=== PATIENT | female | born 1970 | race Caucasian/White ===

== ENCOUNTER 2018-02-16 23:30 | Emergency (ER) | payer BC ==
[2018-02-17 00:59] LABS: ABS Basophils 0 10^3/ul (0-0.2); ABS Eosinophils 0.2 10^3/ul (0-0.6); ABS Lymphocytes 3.2 10^3/ul (1.0-4.8); ABS Monocytes 0.7 10^3/ul (0-0.8); ABS Nucleated RBC 0 10^3/ul; Eosinophil % 1.5 % (0-6); Hematocrit 40 % (35-47); Hemoglobin 13.7 g/dl (12.0-16.0); Lymphocyte % 24.2 % (25-47); Mean Corpuscular HGB Conc 34 g/dl (31-36); Mean Corpuscular Hemoglobin 31 pg (27-31); Mean Corpuscular Volume 89 fL (80-97); Mean Platelet Volume 8.6 um3 (7.4-10.4); Nucleated Red Blood Cells % 0; Platelet Count 206 10^3/ul (150-450); Red Blood Count 4.49 10^6/ul (4.0-5.4); Red Cell Distribution Width 13 % (10.5-15); White Blood Count 13.2 10^3/ul (3.5-10.8)
[2018-02-17 01:00] LABS: EGFR Non-African American 88.6 (>60)
[2018-02-17 03:56] VITALS: BP 105/66
--- NOTE | 2018-02-17 17:23 | ED ---
Amrit Menendez Stephanie, scribed for Manoj Mejia MD on 02/17/18 at 0049 . Palpitations / Dysrhythmia - HPI Summary HPI Summary: The pt is a 47 y/o F presenting to the ED with c/o palpitations that began at approximately 23:45 today. The pt states she was sitting watching a movie after smoking THC, when her HR increased to approximately 140 BPM (per wrist HR monitor) and she states she felt as though she was having a panic attack. Symptoms include bilateral UE and LE numbness and increased urination. Per boyfriend, the pt was speaking slower than usual. - History of Current Complaint Chief Complaint: EDDysrhythmPalp Time Seen by Provider: 02/17/18 00:22 Hx Obtained From: Patient Onset/Duration: Sudden Onset, Lasting Hours, Resolved Character: Fast Aggravating: Nothing Alleviating: Nothing - Allergy/Home Medications Allergies/Adverse Reactions: Allergies Allergy/AdvReac Type Severity Reaction Status Date / Time eucalyptus Allergy Hives Verified 02/16/18 23:45 phenethylamine Allergy Hallucinati Verified 02/16/18 23:46 ons PMH/Surg Hx/FS Hx/Imm Hx Endocrine/Hematology History: Denies: Hx Diabetes, Hx Thyroid Disease Cardiovascular History: Reports: Hx Hypertension Sensory History: Denies: Hx Legally Blind EENT History: Denies: Hx Deafness - Surgical History Surgery Procedure, Year, and Place: 2 sections. PARTIAL HYSTERECTOMY. Cholecystectomy - Immunization History Date of Influenza Vaccine: fall 2016 Infectious Disease History: No Infectious Disease History: Denies: Traveled Outside the [place] in Last 30 Days - Family History Known Family History: Positive: Cardiac Disease, Other - CVA - Social History Occupation: Unemployed Lives: With Family Alcohol Use: None Substance Use Type: Reports: Marijuana Substance Use Comment - Amount & Last Used: tonight Smoking Status (MU): Heavy Every Day Tobacco Smoker Review of Systems Negative: Fever Positive: Palpitations Positive: other - increased Positive: Decreased ROM - urination Neurological: Other - slower speach All Other Systems Reviewed And Are Negative: Yes Physical Exam - Summary Physical Exam Summary: Appearance: Well-appearing, no distress, Well-nourished Skin: Warm, color reflects adequate perfusion Head: Normal Head/Face inspection Eyes: Conjunctiva clear ENT: Normal inspection Neck: Supple, no nodes, no JVD. Respiratory: Lungs clear, Normal breath sounds, no respiratory distress Cardio: RRR, No murmur, pulses normal, brisk capillary refill Abdomen: soft, nontender, no guarding, no rebound Bowel sounds: present Musculoskeletal: Strength Intact/ ROM intact. No calf tenderness. No edema. Neuro: Alert, muscle tone normal, facial symmetry, speech normal, sensory/motor intact Psychological: Normal Triage Information Reviewed: Yes Vital Signs On Initial Exam: Initial Vitals Temp Pulse Resp BP Pulse Ox 97.6 F 95 16 151/75 99 02/16/18 23:41 02/16/18 23:41 02/16/18 23:41 02/16/18 23:41 02/16/18 23:41 Vital Signs Reviewed: Yes Diagnostics - Vital Signs Vital Signs Temp Pulse Resp BP Pulse Ox 02/17/18 00:05 16 02/16/18 23:41 97.6 F 95 16 151/75 99 - Laboratory Lab Results: Lab Results 02/17/18 02/17/18 02/17/18 Range/Units 00:35 00:35 00:35 WBC 13.2 H (3.5-10.8) 10^3/ul RBC 4.49 (4.0-5.4) 10^6/ul Hgb 13.7 (12.0-16.0) g/dl Hct 40 (35-47) % MCV 89 (80-97) fL MCH 31 (27-31) pg MCHC 34 (31-36) g/dl RDW 13 (10.5-15) % Plt Count 206 (150-450) 10^3/ul MPV 8.6 (7.4-10.4) um3 Neut % (Auto) 68.6 (38-83) % Lymph % (Auto) 24.2 L (25-47) % Kendall % (Auto) 5.5 (0-7) % Eos % (Auto) 1.5 (0-6) % Baso % (Auto) 0.2 (0-2) % Absolute Neuts (auto) 9.0 H (1.5-7.7) 10^3/ul Absolute Lymphs (auto) 3.2 (1.0-4.8) 10^3/ul Absolute Monos (auto) 0.7 (0-0.8) 10^3/ul Absolute Eos (auto) 0.2 (0-0.6) 10^3/ul Absolute Basos (auto) 0 (0-0.2) 10^3/ul Absolute Nucleated RBC 0 10^3/ul Nucleated RBC % 0 Sodium 137 (133-145) mmol/L Potassium 3.7 (3.5-5.0) mmol/L Chloride 103 (101-111) mmol/L Carbon Dioxide 28 (22-32) mmol/L Anion Gap 6 (2-11) mmol/L BUN 11 (6-24) mg/dL Creatinine 0.71 (0.51-0.95) mg/dL Est GFR ( Amer) 114.0 (>60) Est GFR (Non-Af Amer) 88.6 (>60) BUN/Creatinine Ratio 15.5 (8-20) Glucose 127 H (70-100) mg/dL Lactic Acid 1.1 (0.5-2.0) mmol/L Calcium 9.3 (8.6-10.3) mg/dL Magnesium 1.8 L (1.9-2.7) mg/dL Total Bilirubin 0.20 (0.2-1.0) mg/dL AST 19 (13-39) U/L ALT 22 (7-52) U/L Alkaline Phosphatase 73 (34-104) U/L Troponin I 0.00 (<0.04) ng/mL Total Protein 6.5 (6.4-8.9) g/dL Albumin 4.0 (3.2-5.2) g/dL Globulin 2.5 (2-4) g/dL Albumin/Globulin Ratio 1.6 (1-3) TSH 2.38 (0.34-5.60) mcIU/mL Result Diagrams: 02/17/18 00:35 02/17/18 00:35 Lab Statement: Any lab studies that have been ordered have been reviewed, and results considered in the medical decision making process. - EKG 23:45 Cardiac Rate: NL EKG Rhythm: Sinus Rhythm - 89 BPM EKG Interpretation: nml axis, nml interval, no STTwave changes, normal EKG Re-Evaluation - Re-Evaluation First Eval Re-Evaluation Time: 01:58 Change: Improved - Pt HR wnl. Pt symptoms completely resolved Pt symptoms most consistent with anxiety/panic. Course/Dx - Diagnoses Differential Diagnosis/HQI/PQRI: Positive: AV Block, Coronary Artery Disease, Hypokalemia, Hypoxia, Paroxymal SVT, Pericarditis, Pulmonary Embolism, V-Tach Provider Diagnoses: Anxiety Discharge - Sign-Out/Discharge Documenting (check all that apply): Discharge - Discharge Plan Condition: Improved Disposition: HOME Patient Education Materials: Anxiety (ED) Referrals: Aida Hendrickson MD [Primary Care Provider] - - Billing Disposition and Condition Condition: IMPROVED Disposition: HOME The documentation as recorded by the Amrit andrew Stephanie accurately reflects the service I personally performed and the decisions made by Roberto gurein Omari A, MD.
== END 2018-02-17 02:10 | disposition home or self-care (01) ==
LOC: ED 23:30
DX: F41.9 Anxiety disorder, unspecified (principal); R00.2 Palpitations; Z86.79 Personal history of other diseases of the circulatory system; F17.210 Nicotine dependence, cigarettes, uncomplicated
CPT/HCPCS: 36415; 80053; 80307; 83605; 83735; 84443; 84484; 85025; 93005; 99283

== ENCOUNTER → 2019-02-06 16:58 | Emergency (ER) | payer BC ==
[2019-02-06 19:17] VITALS: BP 142/110
--- NOTE | 2019-02-06 19:33 | ED ---
Back Pain - HPI Summary HPI Summary: The patient is a 48 y/o F presenting to [facility] with a chief complaint of sudden onset low left back pain that radiates into and down the left thigh starting four days ago. She states that she had a "hard cough" immediately prior to the pain starting. The constant pain is described as a stiffness or tenseness that is parallel to "a frustrating or annoying itch that you can't get rid of." The pain is aggravated by straightening or lifting her left leg, and it is alleviated by standing, but she cannot stand for long because she fractured her left ankle approximately two months ago. She additionally c/o difficulty with gait secondary to pain, minimal incontinence secondary to a productive cough, and numbness in the left leg due to the boot she has been wearing for her fractured ankle (onset today). The pain is currently rated as 8/10 in severity. She has tried to use Ibuprofen, ice packs, heating pads, and medical marijuana to treat the pain, but unfortunately there was no relief. She does take Gabapentin for management of chronic back pain, as prescribed by her chronic pain doctor. Previously, she has tried Cortisone shots in her neck and back, but they didn't seem to manage her pain. She has an appointment with her PCP tomorrow, but she was afraid that she would be sent here anyway. The patient also has hx of HTN, which is not being controlled by medication because she was taking Amlodipine, but it caused her to have severe chest congestion. Current smoker. - History of Current Complaint Chief Complaint: EDBackInjuryPain Stated Complaint: I COUGHED AND INJURED MY LOWER BACK PER PT Time Seen by Provider: 02/06/19 19:26 Hx Obtained From: Patient Onset/Duration: Sudden Onset, Lasting Days - four, Still Present Onset/Duration: Started Days Ago, Still Present Timing: Lasting Days Back Pain Location: Is Discrete @ - low left back, Radiates To - left leg Severity Initially: Severe Severity Currently: Severe Pain Intensity: 8 Pain Scale Used: 0-10 Numeric Character: Stiffness Aggravating Symptom(s): Lifting - left leg, Other - straightening out left leg Alleviating Symptom(s): Other - standing, but she can't stand long due to broken ankle on ipsilateral side as back pain Associated Signs And Symptoms: Positive: Numbness - caused by wearing boot for fractured ankle, Bladder Incontinence - minimal amount due to cough, Pain with Weight Bearing, Other - productive cough - Allergies/Home Medications Allergies/Adverse Reactions: Allergies Allergy/AdvReac Type Severity Reaction Status Date / Time eucalyptus Allergy Hives Verified 02/16/18 23:45 phenethylamine Allergy Hallucinati Verified 02/16/18 23:46 ons PMH/Surg Hx/FS Hx/Imm Hx Endocrine/Hematology History: Denies: Hx Diabetes, Hx Thyroid Disease Cardiovascular History: Reports: Hx Hypertension Musculoskeletal History: Denies: Hx Osteoporosis Sensory History: Denies: Hx Legally Blind, Hx Deafness Opthamlomology History: Denies: Hx Legally Blind Neurological History: Reports: Other Neuro Impairments/Disorders - Fx COCCYX 2016 - Surgical History Surgery Procedure, Year, and Place: 2 sections. PARTIAL HYSTERECTOMY. Cholecystectomy - Immunization History Date of Influenza Vaccine: fall 2016 Infectious Disease History: No Infectious Disease History: Denies: Traveled Outside the [place] in Last 30 Days - Family History Known Family History: Positive: Cardiac Disease, Other - CVA - Social History Alcohol Use: None Hx Substance Use: Yes Substance Use Type: Reports: Marijuana Substance Use Comment - Amount & Last Used: tonight Hx Tobacco Use: Yes Smoking Status (MU): Heavy Every Day Tobacco Smoker Review of Systems Positive: Cough - productive Positive: incontinence - minimal amount due to coughing Positive: Other - low left back pain that radiates down left leg, difficulty with gait due to pain Positive: Numbness - in left leg from wearing boot from fractured left ankle All Other Systems Reviewed And Are Negative: Yes Physical Exam - Summary Physical Exam Summary: Appearance: Well-appearing, Well-nourished, lying in bed comfortably Skin: Warm, dry, no obvious rash Eyes: sclera anicteric, no conjunctival pallor ENT: mucous membranes moist, pharynx appears normal Neck: Supple, nontender Respiratory: Clear to auscultation, no signs of respiratory distress Cardiovascular: Normal S1, S2. No murmurs. Normal distal pulses in tibial and radial bilaterally. Abdomen: Soft, nontender, normal active bowel sounds present Musculoskeletal: Normal, Strength/ROM Intact, no clonus at ankles, reflexes are normal at the knees, no loss of strength in dorsiflexion or plantarflexion of feet Neurological: A&Ox3, awake and alert, mentation is normal, speech is fluent and appropriate Psychiatric: affect is normal, does not appear anxious or depressed Triage Information Reviewed: Yes Vital Signs On Initial Exam: Initial Vitals Temp Pulse Resp BP Pulse Ox 99.3 F 99 17 156/100 100 02/06/19 17:10 02/06/19 17:10 02/06/19 17:10 02/06/19 17:10 02/06/19 17:10 Vital Signs Reviewed: Yes Diagnostics - Vital Signs Vital Signs Temp Pulse Resp BP Pulse Ox 02/06/19 19:12 97.8 F 94 16 142/110 95 02/06/19 17:10 99.3 F 99 17 156/100 100 - Laboratory Lab Statement: Any lab studies that have been ordered have been reviewed, and results considered in the medical decision making process. Back Pain Course/Dx - Course Course Of Treatment: The patient is a 48 y/o F with a chief complaint of sudden onset low left back pain that radiates into and down the left thigh starting four days ago, which she believes started due to a coughing fit she had. The constant pain is a stiffness that is aggravated by straightening or lifting the left leg, and alleviated by standing, although she cant stand for long due to left ankle fracture. She additionally c/o difficulty with gait secondary to pain , minimal incontinence secondary to a productive cough, and numbness in the left leg due to the boot she has been wearing for her broken ankle. Use of Ibuprofen, ice packs, heating pads, and medical marijuana did not relieve the pain. She is prescribed Gabapentin for chronic back pain management. Upon physical exam, the patient exhibits no acute changes; there is no clonus at ankles, reflexes are normal at the knees, and there is no loss of strength in dorsiflexion or plantarflexion of feet. She is diagnosed with sciatica. We discussed discharge with prescription for Valium and Prednisone. The patient agrees with this plan and understands the need for return to the ED for any new or worsening symptoms. - Diagnoses Differential Diagnosis/HQI/PQRI: Positive: Cauda Equina Syndrome, Herniated Disc , Neoplasm, Renal Colic, Strain Provider Diagnoses: Sciatica Discharge - Sign-Out/Discharge Documenting (check all that apply): Patient Departure - Patient will be discharged home. Patient Received Moderate/Deep Sedation with Procedure: No - Discharge Plan Condition: Good Disposition: HOME Prescriptions: Diazepam TAB(*) [Valium TAB(*)] 5 mg PO TID PRN #15 tab MDD 15 mg PRN Reason: Spasms - Back predniSONE [Prednisone 20 MG TAB] 40 mg PO DAILY 5 Days #10 tablet Patient Education Materials: Sciatica (ED) Referrals: Aida Hendrickson MD [Primary Care Provider] - 1 Day Additional Instructions: Follow up with your primary care provider tomorrow at your appointment. Return to the emergency department for any new or worsening symptoms. In addition to the prescribed medications, tylenol at a dose of 1000 mg 3-4 times a day can be very helpful. None of this will completely eliminate the pain but should help temporize until the injury heals. - Billing Disposition and Condition Condition: GOOD Disposition: Home - Attestation Statements Document Initiated by Sebastien: Yes Documenting Scribe: Juli Clark Provider For Whom Sebastien is Documenting (Include Credential): Dr. Savage Okeefe MD Scribe Attestation: Juli Menendez scribed for Dr. Savage Okeefe MD on 02/07/19 at 0440. Scribe Documentation Reviewed: Yes Provider Attestation: The documentation as recorded by the Juli andrew accurately reflects the service I personally performed and the decisions made by me, Dr. Savage Okeefe MD Status of Sebastien Document: Viewed
== END | disposition home or self-care (01) ==
LOC: ED 16:58
DX: M54.32 Sciatica, left side (principal); I10 Essential (primary) hypertension; Z72.0 Tobacco use
CPT/HCPCS: 99282

== ENCOUNTER 2022-03-31 01:01 | Inpatient (IN) ==
[2022-03-31] MEDS ORDERED: Droperidol 5 MG/2 ML 2 ML VIAL IV ONE (01:20)
[2022-03-31 02:16] LABS: Hematocrit 49 % (35-47); Hemoglobin 16.7 g/dL (12.0-16.0); Mean Corpuscular HGB Conc 34 g/dL (31-36); Mean Corpuscular Hemoglobin 29 pg (27-31); Mean Corpuscular Volume 86 fL (80-97); Mean Platelet Volume 8.1 fL (7.4-10.4); Platelet Count 340 10^3/uL (150-450); Red Blood Count 5.69 10^6 /uL (3.70-4.87); Red Cell Distribution Width 13 % (10-15); White Blood Count 20.2 10^3/uL (3.5-10.8)
[2022-03-31 02:33] LABS: ABS Lymphocytes 1.9 10^3/ul (1.0-4.8); ABS Monocytes 1.6 10^3/ul (0-0.8); ABS Neutrophils 16.7 10^3/ul (1.5-7.7); ABS Nucleated RBC 0.1 10^3/ul; Lymphocyte % 9.3 %; Nucleated Red Blood Cells % 0.4
[2022-03-31 02:36] LABS: Urine Appearance Cloudy; Urine Bilirubin Negative (Negative); Urine Blood 3+ (Negative); Urine Color Amber; Urine Glucose Negative (Negative); Urine Ketones Trace (Negative); Urine Nitrite Negative (Negative); Urine Protein 3+(>=500 mg/dL) (Negative); Urine Specific Gravity 1.032 (1.002-1.030); Urine Urobilinogen Positive (Negative)
[2022-03-31 02:37] LABS: ALT 20 U/L (7-52); Acetaminophen < 15 mcg/mL; Albumin 4.8 g/dL (3.2-5.2); Albumin/Globulin Ratio 1.6 (1-3); Alcohol, S < 13 mg/dL (<13); Alkaline Phosphatase 87 U/L (35-149); Blood Urea Nitrogen 22 mg/dL (6-24); CO2 Carbon Dioxide 29 mmol/L (22-32); Chloride 92 mmol/L (101-111); Glucose 135 mg/dL (70-100); High Sens Troponin Baseline 4 pg/mL (<15); Sodium 135 mmol/L (135-145); Total Protein 7.8 g/dL (6.4-8.9); eGFR CKD-EPI 82.3 (>60)
[2022-03-31 02:39] LABS: Anion Gap 14 mmol/L (2-11)
[2022-03-31 02:51] LABS: TSH Ultra Thyroid Stim Horm 0.65 mcIU/mL (0.34-5.60)
[2022-03-31 02:58] LABS: Urine Bacteria 1+ (Absent); Urine Benzodiazepine Screen None Detected (None Detect); Urine Cannabinoids Screen Presumptive Positive (None Detect); Urine Opiates Screen Presumptive Positive (None Detect); Urine Red Blood Cell 3+(>10/hpf) (Absent); Urine Squamous Epithelial Cell Present (Absent); Urine White Blood Cell Trace(0-5/hpf) (Absent)
[2022-03-31 03:51] LABS: Potassium Redraw 3.4 mmol/L (3.5-5.0)
[2022-03-31 03:54] LABS: C Reactive Protein 122.54 mg/L (<8.01)
[2022-03-31 03:57] LABS: Urine Benzodiazepine Screen None Detected (None Detect); Urine Buprenorphine Screen None Detected (None Detect); Urine Cannabinoids Screen Presumptive Positive (None Detect); Urine Fentanyl Screen None Detected (None Detect); Urine Hydrocodone Screen None Detected (None Detect); Urine Opiates Screen Presumptive Positive (None Detect)
[2022-03-31] MEDS ORDERED: Ketamine HCL 50 mg/ml 10 ml VIAL (500 MG) IV ONE (04:09)
[2022-03-31] MEDS ORDERED: cefTRIAXone 2 gm/50 mL D5W 2 GM/50 ML BAG IV ONE (04:15)
[2022-03-31] MEDS ORDERED: Vancomycin 1,250 MG in NS 0.9% 250 ml 250 ML IVPB ONE (04:30)
[2022-03-31] MEDS ORDERED: Propofol 10 MG/ML 20 ML BTL ONE (04:30)
[2022-03-31] MEDS ORDERED: Propofol 10 MG/ML 20 ML BTL IV PUSH ONE (04:32)
[2022-03-31] MEDS ORDERED: Lidocaine 1% VIAL 10 MG/ML VIAL ONE (04:42)
[2022-03-31] MEDS ORDERED: Potassium Chloride LIQUID 20 MEQ/15 ML LIQUID PO ONE (04:57)
[2022-03-31] MEDS ORDERED: Ampicillin ADVAN 2 GM in NS 0.9% 100 ML 100 ML IVPB ONE (05:00)
[2022-03-31] MEDS ORDERED: Vancomycin per Pharmacy 1 EA NOTE FOLLOW UP SCH (05:00)
[2022-03-31 05:01] LABS: Body Fluid Source Cerebral Spinal
[2022-03-31 05:15] LABS: CSF Glucose 59 mg/dL (40-70)
[2022-03-31 05:25] LABS: Hematocrit 46 % (35-47); Hemoglobin 15.9 g/dL (12.0-16.0); Mean Corpuscular HGB Conc 34 g/dL (31-36); Mean Corpuscular Hemoglobin 30 pg (27-31); Mean Corpuscular Volume 87 fL (80-97); Mean Platelet Volume 8.4 fL (7.4-10.4); Platelet Count 331 10^3/uL (150-450); Red Blood Count 5.32 10^6 /uL (3.70-4.87); Red Cell Distribution Width 13 % (10-15); White Blood Count 19.1 10^3/uL (3.5-10.8)
[2022-03-31 05:55] LABS: ABS Lymphocytes 1.9 10^3/ul (1.0-4.8); ABS Monocytes 1.8 10^3/ul (0-0.8); ABS Neutrophils 15.4 10^3/ul (1.5-7.7); Lymphocyte % 10.1 %
[2022-03-31] MEDS ORDERED: Acyclovir IV 520 MG in NS 0.9% 100 ml BAG 100 ML IVPB SCH (06:00)
[2022-03-31 06:16] LABS: Albumin 4.7 g/dL (3.2-5.2); Albumin/Globulin Ratio 1.6 (1-3); Calcium 10.4 mg/dL (8.6-10.3); Globulin 2.9 g/dL (2-4); Potassium 3.6 mmol/L (3.5-5.0); Total Bilirubin 0.7 mg/dL (0.2-1.0); Total Protein 7.6 g/dL (6.4-8.9); eGFR CKD-EPI 66.2 (>60)
[2022-03-31 06:47] LABS: Body Fluid Appearance Clear; Body Fluid Band 1 %; Body Fluid Color Colorless; Body Fluid Mono 30 %; Body Fluid Total Cells Counted 200
[2022-03-31 06:52] LABS: Body Fluid WBC 439.5 /mcL
[2022-03-31 06:56] LABS: CSF Tube # 4
[2022-03-31] MEDS: Mometasone/Formoter 200/5 MDI INH SCH ×2 (08:32→18:57)
[2022-03-31] MEDS ORDERED: Ampicillin ADVAN 2 GM in NS 0.9% 100 ml BAG 100 ML IVPB SCH (09:00)
[2022-03-31] MEDS: NS 0.9% 1000 ml BAG 1,000 ML IV SCH (12:19)
[2022-03-31] MEDS: Ampicillin ADVAN 2 GM in NS 0.9% 100 ml BAG 100 ML IVPB SCH ×4 (12:42→21:38)
[2022-03-31] MEDS: Morphine 2 MG/ML SYRINGE IV PRN ×2 (13:45→17:18)
[2022-03-31] MEDS: Vancomycin 1,250 MG in NS 0.9% 250 ml 250 ML IVPB SCH (15:14)
[2022-03-31] MEDS: DULoxetine DR 30 mg CAP PO SCH ×2 (15:23→22:10)
[2022-03-31] MEDS: cefTRIAXone 2 gm/50 mL D5W 2 GM/50 ML BAG IV SCH (17:19)
[2022-03-31] MEDS ORDERED: LORazepam 2 mg VIAL 1 ml IV PUSH PRN (17:55)
[2022-03-31] MEDS ORDERED: Lorazepam PYXIS KEY PRN (17:55)
[2022-03-31] MEDS: Acyclovir IV 520 MG in NS 0.9% 100 ml BAG 100 ML IVPB SCH (20:12)
[2022-03-31] MEDS ORDERED: Haloperidol 5 mg/ml SDV IV/IM 5 MG/ML AMP IM ONE (21:49)
[2022-03-31] MEDS ORDERED: Haloperidol 5 mg/ml SDV IV/IM 5 MG/ML AMP ONE (21:51)
[2022-03-31] MEDS ORDERED: Morphine 2 MG/ML SYRINGE IV PRN (21:55)
[2022-04-01] MEDS: Ampicillin ADVAN 2 GM in NS 0.9% 100 ml BAG 100 ML IVPB SCH ×6 (00:20→21:21)
[2022-04-01] MEDS ORDERED: Dexmedetomidine 1,000 MCG in NS 0.9% 250 ml 240 ML IV SCH (02:00)
[2022-04-01] MEDS: cefTRIAXone 2 gm/50 mL D5W 2 GM/50 ML BAG IV SCH ×2 (04:36→15:31)
[2022-04-01] MEDS: Vancomycin 1,250 MG in NS 0.9% 250 ml 250 ML IVPB SCH (04:52)
[2022-04-01 05:34] LABS: Hematocrit 41 % (35-47); Hemoglobin 14.1 g/dL (12.0-16.0); Mean Corpuscular HGB Conc 34 g/dL (31-36); Mean Corpuscular Hemoglobin 30 pg (27-31); Mean Corpuscular Volume 87 fL (80-97); Red Blood Count 4.71 10^6 /uL (3.70-4.87); Red Cell Distribution Width 13 % (10-15); White Blood Count 17.8 10^3/uL (3.5-10.8)
[2022-04-01 05:58] LABS: Blood Urea Nitrogen 18 mg/dL (6-24); CO2 Carbon Dioxide 26 mmol/L (22-32); Calcium 9.1 mg/dL (8.6-10.3); Chloride 100 mmol/L (101-111); Glucose 119 mg/dL (70-100); Sodium 137 mmol/L (135-145); eGFR CKD-EPI 97.9 (>60)
[2022-04-01 05:59] LABS: Anion Gap 11 mmol/L (2-11)
[2022-04-01] MEDS: Acyclovir IV 520 MG in NS 0.9% 100 ml BAG 100 ML IVPB SCH ×4 (07:10→22:33)
[2022-04-01 07:14] LABS: ABS Basophils 0.1 10^3/ul (0-0.2); ABS Lymphocytes 3.4 10^3/ul (1.0-4.8); ABS Monocytes 1.3 10^3/ul (0-0.8); ABS Neutrophils 13.1 10^3/ul (1.5-7.7); Eosinophil % 0.1 %; Lymphocyte % 18.9 %; Nucleated Red Blood Cells % 0.1; Platelet Count Platelets clumped. 10^3/uL (150-450)
[2022-04-01] MEDS ORDERED: Potassium Chloride LIQUID 20 MEQ/15 ML LIQUID PO ONE (07:34)
[2022-04-01 07:54] LABS: Magnesium 1.8 mg/dL (1.9-2.7)
[2022-04-01] MEDS: DULoxetine DR 30 mg CAP PO SCH ×2 (08:32→21:31)
[2022-04-01] MEDS: KCL 20 MEQ/100 ML IVPREMIX 20 MEQ/100 ML BAG IV SCH ×2 (11:39→13:53)
[2022-04-01] MEDS: Enoxaparin 40 MG/0.4 ML SYR SUBCUT SCH (11:39)
[2022-04-01] MEDS ORDERED: Magnesium Sulfate 2 gm BAG 2 GM/50 ML BAG IVPB ONE (11:57)
[2022-04-01] MEDS: Mometasone/Formoter 200/5 MDI INH SCH (12:05)
[2022-04-01] MEDS ORDERED: Vancomycin Trough Check NOTE FOLLOW UP ONE (13:30)
[2022-04-01] MEDS: HYDROcodone/ACETAMIN 5/325 mg TAB PO PRN ×2 (13:37→17:47)
[2022-04-01 15:19] LABS: CSF VDRL Negative (Negative)
[2022-04-01] MEDS: oxyCODONE SR 10 mg TAB PO SCH ×2 (16:48→16:56)
[2022-04-01] MEDS ORDERED: Gadoteridol (CONTRAST) 279.3 MG/ML 10 ML IV ONE (20:37)
[2022-04-02] MEDS: Ampicillin ADVAN 2 GM in NS 0.9% 100 ml BAG 100 ML IVPB SCH ×3 (00:29→08:18)
[2022-04-02] MEDS: NS 0.9% 1000 ml BAG 1,000 ML IV SCH (02:22)
[2022-04-02] MEDS: Mometasone/Formoter 200/5 MDI INH SCH ×3 (03:07→21:31)
[2022-04-02] MEDS: cefTRIAXone 2 gm/50 mL D5W 2 GM/50 ML BAG IV SCH (04:12)
[2022-04-02] MEDS: oxyCODONE SR 10 mg TAB PO SCH ×2 (04:22→16:09)
[2022-04-02 05:04] LABS: ABS Lymphocytes 2.8 10^3/ul (1.0-4.8); ABS Monocytes 0.9 10^3/ul (0-0.8); ABS Neutrophils 7.5 10^3/ul (1.5-7.7); Eosinophil % 0.3 %; Hematocrit 33 % (35-47); Hemoglobin 11.1 g/dL (12.0-16.0); Mean Corpuscular HGB Conc 34 g/dL (31-36); Mean Corpuscular Hemoglobin 30 pg (27-31); Mean Corpuscular Volume 88 fL (80-97); Mean Platelet Volume 8.4 fL (7.4-10.4); Nucleated Red Blood Cells % 0.1; Platelet Count 238 10^3/uL (150-450); Red Blood Count 3.74 10^6 /uL (3.70-4.87); Red Cell Distribution Width 13 % (10-15); White Blood Count 11.2 10^3/uL (3.5-10.8)
[2022-04-02 05:25] LABS: Calcium 7.5 mg/dL (8.6-10.3); Magnesium 1.8 mg/dL (1.9-2.7); Potassium 3.3 mmol/L (3.5-5.0); eGFR CKD-EPI 105.4 (>60)
[2022-04-02] MEDS: Acyclovir IV 520 MG in NS 0.9% 100 ml BAG 100 ML IVPB SCH ×3 (06:12→20:12)
[2022-04-02] MEDS: HYDROcodone/ACETAMIN 5/325 mg TAB PO PRN ×3 (06:44→23:13)
[2022-04-02] MEDS ORDERED: Potassium Chloride LIQUID 20 MEQ/15 ML LIQUID PO ONE (07:29)
[2022-04-02] MEDS ORDERED: Magnesium Sulfate 2 gm BAG 2 GM/50 ML BAG IVPB ONE (07:29)
[2022-04-02] MEDS: DULoxetine DR 30 mg CAP PO SCH ×2 (08:02→20:11)
[2022-04-02] MEDS: Morphine 2 MG/ML SYRINGE IV PRN ×3 (08:06→20:10)
[2022-04-02] MEDS: Enoxaparin 40 MG/0.4 ML SYR SUBCUT SCH (11:23)
[2022-04-02 15:29] LABS: HSV 1 PCR, CSF Negative (Negative); HSV 2 PCR, CSF Positive (Negative)
[2022-04-03] MEDS ORDERED: cefTRIAXone 2 gm/50 mL D5W 2 GM/50 ML BAG IV SCH (04:00)
[2022-04-03] MEDS: Acyclovir IV 520 MG in NS 0.9% 100 ml BAG 100 ML IVPB SCH ×3 (05:00→20:42)
[2022-04-03] MEDS: oxyCODONE SR 10 mg TAB PO SCH ×2 (05:00→16:23)
[2022-04-03] MEDS: Mometasone/Formoter 200/5 MDI INH SCH ×2 (07:15→20:13)
[2022-04-03] MEDS: DULoxetine DR 30 mg CAP PO SCH ×2 (07:42→20:40)
[2022-04-03] MEDS: Morphine 2 MG/ML SYRINGE IV PRN ×2 (07:50→22:55)
[2022-04-03 10:39] LABS: ABS Eosinophils 0.1 10^3/ul (0-0.6); ABS Lymphocytes 3.1 10^3/ul (1.0-4.8); ABS Monocytes 0.9 10^3/ul (0-0.8); ABS Neutrophils 9.7 10^3/ul (1.5-7.7); Eosinophil % 0.6 %; Hematocrit 39 % (35-47); Lymphocyte % 22.3 %; Mean Corpuscular HGB Conc 34 g/dL (31-36); Mean Corpuscular Hemoglobin 29 pg (27-31); Mean Corpuscular Volume 86 fL (80-97); Mean Platelet Volume 7.6 fL (7.4-10.4); Nucleated Red Blood Cells % 0.1; Platelet Count 290 10^3/uL (150-450); Red Blood Count 4.47 10^6 /uL (3.70-4.87); Red Cell Distribution Width 12 % (10-15); White Blood Count 13.8 10^3/uL (3.5-10.8)
[2022-04-03] MEDS: Enoxaparin 40 MG/0.4 ML SYR SUBCUT SCH (11:17)
[2022-04-03 12:09] LABS: Calcium 9.6 mg/dL (8.6-10.3); Magnesium 1.6 mg/dL (1.9-2.7); Potassium 3.4 mmol/L (3.5-5.0); eGFR CKD-EPI 86.5 (>60)
[2022-04-03] MEDS: HYDROcodone/ACETAMIN 5/325 mg TAB PO PRN ×2 (12:13→20:40)
[2022-04-03] MEDS ORDERED: Potassium Chloride LIQUID 20 MEQ/15 ML LIQUID PO ONE (12:39)
[2022-04-03] MEDS ORDERED: Magnesium Sulf 4 GM/100 ML IV 4,000 MG/100 ML BAG IVPB ONE (12:39)
[2022-04-04] MEDS: HYDROcodone/ACETAMIN 5/325 mg TAB PO PRN (05:19)
[2022-04-04] MEDS: oxyCODONE SR 10 mg TAB PO SCH ×2 (05:20→17:36)
[2022-04-04] MEDS: Acyclovir IV 520 MG in NS 0.9% 100 ml BAG 100 ML IVPB SCH ×3 (05:20→20:58)
[2022-04-04 05:58] LABS: ABS Eosinophils 0.2 10^3/ul (0-0.6); ABS Lymphocytes 3.8 10^3/ul (1.0-4.8); Eosinophil % 1.3 %; Hematocrit 40 % (35-47); Hemoglobin 13.4 g/dL (12.0-16.0); Lymphocyte % 27.3 %; Mean Corpuscular HGB Conc 34 g/dL (31-36); Mean Corpuscular Hemoglobin 30 pg (27-31); Mean Corpuscular Volume 88 fL (80-97); Mean Platelet Volume 7.8 fL (7.4-10.4); Platelet Count 313 10^3/uL (150-450); Red Cell Distribution Width 13 % (10-15)
[2022-04-04 06:21] LABS: Calcium 9.8 mg/dL (8.6-10.3); Magnesium 2.1 mg/dL (1.9-2.7); Potassium 3.9 mmol/L (3.5-5.0); eGFR CKD-EPI 87.8 (>60)
[2022-04-04] MEDS: Mometasone/Formoter 200/5 MDI INH SCH ×2 (07:10→20:20)
[2022-04-04] MEDS: DULoxetine DR 30 mg CAP PO SCH ×2 (09:14→20:43)
[2022-04-04] MEDS: Enoxaparin 40 MG/0.4 ML SYR SUBCUT SCH (09:30)
[2022-04-04] MEDS: Morphine 2 MG/ML SYRINGE IV PRN ×3 (09:36→20:43)
[2022-04-04] MEDS: Polyethylene Glycol 3350 17 GM PACKET PO SCH (13:16)
[2022-04-04] MEDS: Senna TAB 8.6 mg TAB PO SCH (13:20)
[2022-04-04] MEDS ORDERED: Ondansetron 4 mg VIAL 2 MG/ML 2 ml VIAL IV PRN (17:54)
[2022-04-04] MEDS ORDERED: Ondansetron 4 mg VIAL 2 MG/ML 2 ml VIAL ONE (18:30)
[2022-04-05] MEDS: oxyCODONE SR 10 mg TAB PO SCH ×2 (04:53→17:02)
[2022-04-05] MEDS: Acyclovir IV 520 MG in NS 0.9% 100 ml BAG 100 ML IVPB SCH ×3 (04:55→21:43)
[2022-04-05 06:26] LABS: ABS Basophils 0.1 10^3/ul (0-0.2); ABS Eosinophils 0.4 10^3/ul (0-0.6); ABS Lymphocytes 4.5 10^3/ul (1.0-4.8); ABS Monocytes 1.1 10^3/ul (0-0.8); ABS Neutrophils 10.5 10^3/ul (1.5-7.7); Eosinophil % 2.6 %; Hematocrit 41 % (35-47); Hemoglobin 13.6 g/dL (12.0-16.0); Lymphocyte % 27.2 %; Mean Corpuscular HGB Conc 34 g/dL (31-36); Mean Corpuscular Hemoglobin 30 pg (27-31); Mean Corpuscular Volume 88 fL (80-97); Mean Platelet Volume 7.9 fL (7.4-10.4); Nucleated Red Blood Cells % 0.1; Platelet Count 308 10^3/uL (150-450); Red Blood Count 4.62 10^6 /uL (3.70-4.87); Red Cell Distribution Width 13 % (10-15); White Blood Count 16.5 10^3/uL (3.5-10.8)
[2022-04-05] MEDS: Mometasone/Formoter 200/5 MDI INH SCH ×2 (07:32→20:22)
[2022-04-05] MEDS: Polyethylene Glycol 3350 17 GM PACKET PO SCH (10:10)
[2022-04-05] MEDS: Enoxaparin 40 MG/0.4 ML SYR SUBCUT SCH (10:11)
[2022-04-05] MEDS: Senna TAB 8.6 mg TAB PO SCH (10:12)
[2022-04-05] MEDS: DULoxetine DR 30 mg CAP PO SCH ×2 (10:12→21:48)
[2022-04-05] MEDS: HYDROcodone/ACETAMIN 5/325 mg TAB PO PRN ×2 (10:12→13:00)
[2022-04-05 17:15] LABS: CSF West Nile Virus IgG Ab Negative (Negative); CSF West Nile Virus IgM Ab Negative (Negative)
[2022-04-05] MEDS: Morphine 2 MG/ML SYRINGE IV PRN (21:40)
[2022-04-06] MEDS: oxyCODONE SR 10 mg TAB PO SCH ×2 (05:56→17:37)
[2022-04-06] MEDS: Acyclovir IV 520 MG in NS 0.9% 100 ml BAG 100 ML IVPB SCH ×3 (05:57→20:14)
[2022-04-06 06:25] LABS: Hematocrit 40 % (35-47); Hemoglobin 13.4 g/dL (12.0-16.0); Mean Corpuscular HGB Conc 34 g/dL (31-36); Mean Corpuscular Hemoglobin 30 pg (27-31); Mean Corpuscular Volume 88 fL (80-97); Mean Platelet Volume 7.9 fL (7.4-10.4); Platelet Count 350 10^3/uL (150-450); Red Blood Count 4.53 10^6 /uL (3.70-4.87); Red Cell Distribution Width 12 % (10-15); White Blood Count 18.4 10^3/uL (3.5-10.8)
[2022-04-06 07:02] LABS: eGFR CKD-EPI 79.5 (>60)
[2022-04-06] MEDS: Mometasone/Formoter 200/5 MDI INH SCH ×2 (07:19→20:10)
[2022-04-06] MEDS: DULoxetine DR 30 mg CAP PO SCH ×2 (09:45→20:20)
[2022-04-06] MEDS: HYDROcodone/ACETAMIN 5/325 mg TAB PO PRN ×2 (09:46→14:12)
[2022-04-06] MEDS: Polyethylene Glycol 3350 17 GM PACKET PO SCH (09:48)
[2022-04-06] MEDS: Senna TAB 8.6 mg TAB PO SCH (10:09)
[2022-04-06] MEDS: Enoxaparin 40 MG/0.4 ML SYR SUBCUT SCH (11:40)
[2022-04-06 12:25] LABS: Mycoplasma pneumoniae IgG Ab Equivocal (Negative); Mycoplasma pneumoniae IgM Ab Negative (Negative)
[2022-04-06] MEDS ORDERED: Magic MouthWash2-BEN/MAAL/LIDO/NYST 240 ML BTL (alt formulation) SWISH SWAL SCH (21:00)
[2022-04-06] MEDS: Morphine 2 MG/ML SYRINGE IV PRN (22:49)
[2022-04-07] MEDS: oxyCODONE SR 10 mg TAB PO SCH (05:16)
[2022-04-07] MEDS: Acyclovir IV 520 MG in NS 0.9% 100 ml BAG 100 ML IVPB SCH (05:17)
[2022-04-07 05:50] LABS: ABS Basophils 0.1 10^3/ul (0-0.2); ABS Eosinophils 0.3 10^3/ul (0-0.6); ABS Lymphocytes 4.5 10^3/ul (1.0-4.8); ABS Monocytes 1.1 10^3/ul (0-0.8); ABS Neutrophils 10.8 10^3/ul (1.5-7.7); Hematocrit 39 % (35-47); Hemoglobin 13.2 g/dL (12.0-16.0); Lymphocyte % 26.7 %; Mean Corpuscular HGB Conc 34 g/dL (31-36); Mean Corpuscular Hemoglobin 30 pg (27-31); Mean Corpuscular Volume 88 fL (80-97); Mean Platelet Volume 8.1 fL (7.4-10.4); Platelet Count 347 10^3/uL (150-450); Red Blood Count 4.48 10^6 /uL (3.70-4.87); Red Cell Distribution Width 12 % (10-15); White Blood Count 16.8 10^3/uL (3.5-10.8)
[2022-04-07] MEDS: Mometasone/Formoter 200/5 MDI INH SCH (07:01)
[2022-04-07] MEDS: DULoxetine DR 30 mg CAP PO SCH (08:57)
[2022-04-07] MEDS: Senna TAB 8.6 mg TAB PO SCH (08:59)
[2022-04-07] MEDS: Polyethylene Glycol 3350 17 GM PACKET PO SCH (08:59)
[2022-04-07] MEDS ORDERED: Nystatin SUSPENSION 100,000 UNITS/ML UDC PO SCH (09:00)
[2022-04-07] MEDS: Enoxaparin 40 MG/0.4 ML SYR SUBCUT SCH (10:25)
[2022-04-07 11:44] VITALS: BP 122/81
[2022-04-07] MEDS: HYDROcodone/ACETAMIN 5/325 mg TAB PO PRN (12:09)
[2022-04-07 12:43] LABS: Albumin 4.2 g/dL (3.2-5.2); Calcium 9.5 mg/dL (8.6-10.3); Potassium 3.1 mmol/L (3.5-5.0); Total Bilirubin 0.4 mg/dL (0.2-1.0)
[2022-04-07 12:49] LABS: Albumin/Globulin Ratio 1.8 (1-3); C Reactive Protein 7.27 mg/L (<8.01); Globulin 2.4 g/dL (2-4); Total Protein 6.6 g/dL (6.4-8.9); eGFR CKD-EPI 86.5 (>60)
[2022-04-07 13:57] LABS: HIV 4th Generation Nonreactive (Nonreactive)
== END 2022-04-07 13:33 | disposition home health service (06) | DRG 50 ==
LOC: ED 01:01 → EDHOLD 05:19 → SUATTDRO 05:19 → MED 06:13 → ICU 11:58 → MED 04-02 14:15
PROVIDERS: ADMIT Internal Medicine; ATTEND Internal Medicine